=== PATIENT | female | born 1965 | race Two or more races ===

== ENCOUNTER → 2018-09-04 | Outpatient (CLI) | payer OTHER ==
[2018-09-05 15:07] LABS: HPV 16 Negative (Negative); HPV 18 Negative (Negative); HPV OTHER HR TYPES Negative (Negative)
== END | disposition home or self-care (01) ==
LOC: LAB SHORT 09:37 → LAB 09:37
PROVIDERS: Obstetrics & Gynecology
DX: Z01.419 Encounter for gynecological examination (general) (routine) without abnormal findings (principal)
CPT/HCPCS: 87624; G0123

== ENCOUNTER 2018-10-19 11:53 | Day surgery (SDC) | payer OTHER ==
[~2018-10-19] VITALS: Ht 160 cm; Wt 85.8 kg
[~2018-10-19 11:53] MED LIST: MISO200; SERT100; ZOLM2.5
== END 2018-10-19 14:42 | disposition home or self-care (01) ==
LOC: ORSCSDS 11:53
PROVIDERS: Obstetrics & Gynecology
PROC: 0UDB8ZX Extraction of Endometrium, Via Natural or Artificial Opening Endoscopic, Diagnostic (ICD-10-PCS; principal; 2018-10-19 13:45)
DX: N92.0 Excessive and frequent menstruation with regular cycle (principal); N88.2 Stricture and stenosis of cervix uteri; Z79.899 Other long term (current) drug therapy
CPT/HCPCS: 88305; J1100; J1885; J2250; J2405; J2704; J3010; J7120

== ENCOUNTER → 2019-02-24 | Outpatient (CLI) | payer OTHER | LOC: LAB SHORT 10:33 → LAB EV 10:33 | DX: L08.9 Local infection of the skin and subcutaneous tissue, unspecified (principal) | CPT/HCPCS: 87070; 87205 ==

== ENCOUNTER 2019-11-04 06:08 | Day surgery (SDC) | payer OTHER ==
[~2019-11-04 06:08] MED LIST changes: +Aspir 8181 MG PO; +METO25ER PO
--- NOTE | 2019-11-04 09:18 | NUR ---
PT VERBALIZED UNDERSTANDING OF WRITTEN AND VERBAL D/C INST. IV REMOVED. PT TAKEN OUT OF THE HRT CENTER VIA W/C.
== END 2019-11-04 22:45 | disposition home or self-care (01) ==
LOC: MHTC 06:08
DX: I42.8 Other cardiomyopathies (principal); Z79.82 Long term (current) use of aspirin; Z79.899 Other long term (current) drug therapy
CPT/HCPCS: 93312; 93325; J2250; J2704; J7030

== ENCOUNTER 2019-11-10 18:26 | Emergency (ER) | payer OTHER ==
[~2019-11-10] VITALS: Ht 160 cm; Wt 82.5 kg
[2019-11-10] MEDS ORDERED: METOPROLOL SUCC25 MG PO (18:53)
[2019-11-10] MEDS ORDERED: Zoloft100 MG PO (18:53)
[2019-11-10] MEDS ORDERED: Veetids 500500 MG PO (20:14)
== END 2019-11-10 20:24 | disposition home or self-care (01) ==
LOC: ER 18:26
DX: S02.5XXA Fracture of tooth (traumatic), initial encounter for closed fracture (principal); S01.511A Laceration without foreign body of lip, initial encounter; Z88.5 Allergy status to narcotic agent; Z79.899 Other long term (current) drug therapy; W01.0XXA Fall on same level from slipping, tripping and stumbling without subsequent striking against object, initial encounter
CPT/HCPCS: 12011; 99282-25

== ENCOUNTER 2019-11-25 08:37 | Day surgery (SDC) | payer OTHER ==
[~2019-11-25] VITALS: Ht 160 cm; Wt 82.3 kg
[~2019-11-25 08:37] MED LIST changes: +METOPROLOL SUCC25 MG PO; +Veetids 500500 MG PO; +ZOLM2.5 PO; +Zoloft100 MG PO
--- NOTE | 2019-11-25 13:00 | NUR ---
TR band Air was let out of TR band, bleeding occured-air replaced. Will continue to monitor.
--- NOTE | 2019-11-25 14:36 | NUR ---
DISCHARGE PT REMAINED A&OX3 AND DENIED ANY PAIN DURING RECOVERY POST TYLENOL PER AUG. R RADIAL SITE-TR BAND REMOVED-REPLACED WITH CLOTH DOT BANDAGE AND WHITE BOARD. DISCHARGE PAPERWORK GONE OVER WITH PT. PT VERBALLY STATED THE UNDERSTANDING OF THE DISCHARGE EDUCATION AND DENIED ANY QUESTIONS AT THIS TIME. PT ABLE TO DRESS SELF AND AMBULATE WITH EASE. PT WHEELED OUT BY GHADA Lane RN WITH ALL BELONGINGS.
== END 2019-11-25 14:40 | disposition home or self-care (01) ==
LOC: MHTC 08:37
PROC: 4A023N7 Measurement of Cardiac Sampling and Pressure, Left Heart, Percutaneous Approach (ICD-10-PCS; principal; 2019-11-25)
PROC: B2111ZZ Fluoroscopy of Multiple Coronary Arteries using Low Osmolar Contrast (ICD-10-PCS; principal; 2019-11-25)
DX: Q21.1 Atrial septal defect (principal); I42.8 Other cardiomyopathies; I47.1 Supraventricular tachycardia; Z79.82 Long term (current) use of aspirin; Z79.899 Other long term (current) drug therapy; Z88.5 Allergy status to narcotic agent
CPT/HCPCS: 93458; 99152; 99153; A9270; C1769; C1894; J1644; J2250; J3010; J7030; Q9967

== ENCOUNTER → 2020-09-11 | Outpatient (CLI) | payer BC ==
[2020-09-15 16:10] LABS: HPV 16 Negative (Negative); HPV 18 Negative (Negative); HPV OTHER HR TYPES Negative (Negative)
== END | disposition home or self-care (01) ==
LOC: LAB SHORT 12:01 → LAB 12:01
PROVIDERS: Obstetrics & Gynecology
DX: Z01.419 Encounter for gynecological examination (general) (routine) without abnormal findings (principal)
CPT/HCPCS: 87624; G0123